=== PATIENT | male | born 1960 | race Caucasian/White ===

== ENCOUNTER → 2022-10-08 | Outpatient (CLI) | payer OTHER ==
[~2022-10-08] MED LIST: DIOVAN160 MG PO; IOPAMIDOL 370 MG/ML 100 ML INFUS..BTL INJ ONE; OMEPRAZOLE20 MG PO; SODIUM CHLORIDE 0.9% 100 ML ONE
[2022-10-08 10:02] LABS: CREATININE, SERUM 0.96 mg/dL (0.72-1.25)
== END ==
LOC: CT 09:15
PROVIDERS: ATTEND Internal Medicine Cardiovascular Disease
DX: R94.39 Abnormal result of other cardiovascular function study (principal)
CPT/HCPCS: 36415; 75574; 82565; 84520; J7050; Q9967